=== PATIENT | female | born 1985 | race Caucasian/White ===

== ENCOUNTER 2020-04-30 16:03 | Emergency (ER) | payer MEDICAID, SELFPAY ==
[~2020-04-30] VITALS: Ht 165.1 cm; Wt 68.0 kg
[2020-04-30 16:32] VITALS: BP 141/66
[2020-04-30 17:15] VITALS: BP 141/66
== END 2020-04-30 17:15 | disposition home or self-care (01) ==
LOC: MED 16:03 → EEVIPCON 16:03 → MED 17:15
DX: M79.10 Myalgia, unspecified site (principal); J02.9 Acute pharyngitis, unspecified; R50.9 Fever, unspecified; Z20.828 Contact with and (suspected) exposure to other viral communicable diseases
CPT/HCPCS: 99283; U0003